=== PATIENT | male | born 1960 | race Caucasian/White ===

== ENCOUNTER 2018-09-28 16:09 | Inpatient (IN) ==
[2018-09-28] MEDS ORDERED: DUONEB (A & A) INH PRN (19:15)
[2018-09-28] MEDS ORDERED: SODIUM CHLORIDE 0.9% INJ SCH (21:00)
[2018-09-28 21:12] LABS: HEMOGLOBIN 14.7 g/dL (14.0-18.0); MCH 27.6 PG (27-31); MCHC 33.4 g/dL (33-37); MCV 82.6 FL (81-99); RBC 5.33 XMIL (4.7-6.1); RDW 14.5 % (11.5-14.5); WBC 6.57 X1000 (4.8-10.8)
[2018-09-28 21:33] LABS: AGAP 11; ALB/GLOB RATIO 1.2; ALBUMIN 3.8 g/dL (3.5-5.0); ALKALINE PHOSPHATASE 74 U/L (32-122); BUN 11 mg/dL (8-22); C REACTIVE PROT QUANT 3.38 mg/L (0.00-5.00); CALCIUM 8.5 mg/dL (8.8-10.2); CHLORIDE 101 mmol/L (98-107); CK PROFILE 88 U/L (24-204); COSMO 277; CREATININE 0.7 mg/dL (0.7-1.2); ESTIMATED GFR > 60; GLUCOSE 99 mg/dL (70-104); GOT 16 U/L (10-34); GPT 9 U/L (10-44); MAGNESIUM 2.1 mg/dL (1.5-2.7); POTASSIUM 4.1 mmol/L (3.5-5.1); SODIUM 139 mmol/L (136-145); TCO2 27 mmol/L (25-35); TOTAL BILIRUBIN 0.24 mg/dL (0.20-1.00); TOTAL PROTEIN 6.9 g/dL (6.3-8.3)
--- NOTE | 2018-09-28 21:49 | Diag Imaging Result Doc PS360 ---
EXAM: CHEST-2 VIEWS - 09/28/2018 HISTORY: SOB TECHNIQUE: Chest two views COMPARISON: 04/21/2010 FINDINGS: Heart size is normal. There are apparent mild COPD changes. The lungs appear to be clear of acute changes. There is no pleural effusion or pneumothorax identified. There is apparent thoracic ankylosis noted. IMPRESSION: Mild COPD changes. No other evidence of acute disease. Electronically signed by Gorge Betts 09/28/2018 9:46 PM
--- NOTE | 2018-09-28 21:57 | HISTORY AND PHYSICAL ---
CHIEF COMPLAINT: Shortness of breath and cough, wheezing for the last 2 weeks. HISTORY OF PRESENT ILLNESS: He is a 66-year-old, white gentleman who came in my office today after followup treating outpatient. Two-week history of URI symptoms. He has left ear otitis media and wheezing. He was sent home on 09/08/2018. He came back with marked wheezing and mild respiratory distress. He is slightly hypoxic on pulse oximetry. Since he has immunocompromised with underlying ankylosing spondylitis, the patient was admitted to the hospital for acute COPD exacerbation after failure of outpatient treatment. PAST MEDICAL HISTORY: Ankylosing spondylitis, BPV, benign prostatic hypertrophy, COPD, depression with anxiety, hypertension, hypogonadism, kidney stones, nicotine dependency, sleep apnea, acid reflux disease, B12 deficiency. PAST SURGICAL HISTORY: Colonoscopy. Waiting for cataract surgery next week. MEDICATIONS: Humira injection every 2 weeks, 40 mg/0.8 mL, Lunesta 3 mg daily, baclofen 10 three times daily, hydromorphone 4 mg 3 times daily. Trilogy 1 puff daily. Timolol 0.5, 1 drop in both eyes once daily. ALLERGIES: Not known. SOCIAL HISTORY: He is . No children. Retired cnc maintenance technician. Living in [place]. Smoking 2 packs a day since age 14. No alcohol problems. FAMILY HISTORY: Father of liver failure at 66. Mother is 77 years old with high blood pressure. Grandparents had heart disease. HEALTH MAINTENANCE: Flu vaccine declined. Pneumococcal vaccine 2009, Last physical exam May 2018, colonoscopy January 2017. REVIEW OF SYSTEMS: HEENT: Headache. No vision problems due to cataracts. Left ear pain, postnasal drainage. Neck: He has a stiff neck due to ankylosing spondylitis. Cardiopulmonary: Cough, shortness of breath, wheezing, nonproductive cough. No fever. No chest pain. No PND. No orthopnea. No swelling of feet. GI: No nausea, vomiting, abdominal pain. : No history of hesitancy, frequency, dysuria, and no swelling of feet. No history of joint pains due to ankylosing spondylitis. Neuro exam: No focal symptoms or weakness. PHYSICAL EXAMINATION: VITAL SIGNS: He is 5 feet 8 inches, 146 pounds, low-grade fever 99, pulse is 66, blood pressure is 162/82. He is in mild respiratory distress using accessory muscles. HEENT EXAM: Left tympanic membrane is inflamed. Nose and throat congested. Bilateral cataracts present. NECK: Forward flexion, limited extension noted. CHEST: Bilateral wheezing. HEART: Distant heart sounds. ABDOMEN: Belly is soft, nontender. Good bowel sounds. No masses palpable. RECTAL: Deferred. EXTREMITIES: No peripheral edema, cyanosis. NEUROLOGIC: No obvious neurological deficits. INVESTIGATIONS: White cell count 6.5, hematocrit 44, platelets 214. Rest of the labs are pending. ASSESSMENT AND PLAN: A 58-year-old, white gentleman admitted to the hospital basically for acute chronic obstructive pulmonary disease exacerbation with underlying tobacco abuse, ankylosing spondylitis. 1. Chronic obstructive pulmonary disease, . Plan is follow up on the pending labs and continue on oxygen as needed, bronchodilators, IV steroids, IV antibiotics. 2. Tobacco abuse. Quit smoking. 3. Sleep apnea on CPAP machine. 4. Kidney stones, stable. 5. Chronic pain due to ankylosing spondylitis, on baclofen and hydromorphone, under Dr. Graf. 6. Insomnia on Lunesta. 7. B12 deficiency on replacement therapy. 8. Initiate vaccination protocol. Pneumococcal vaccine prior to the discharge and follow up on the pending labs. cc: Fredis Norman MD
[2018-09-28] MEDS: NS 1,000 ML IV SCH (22:47)
[2018-09-28] MEDS: LEVAQUIN 500 MG/D5W 500 MG/100 ML IVPB IV SCH (22:50)
[2018-09-28] MEDS: SOLU-MEDROL IV SCH (22:54)
[2018-09-28] MEDS: ZOSYN 3.375 GM in NS 50 ML IV SCH (22:54)
[2018-09-28] MEDS: PEPCID IV SCH (22:55)
[2018-09-28] MEDS: NICODERM PATCH TD PRN (22:56)
[2018-09-28] MEDS: LOVENOX SUBQ SCH (22:57)
[2018-09-28] MEDS: LIORESAL PO SCH (22:58)
[2018-09-28] MEDS: HUMALOG SUBQ SCH (22:59)
[2018-09-28 23:14] LABS: ALLEN TEST YES; BE 2.7 mmoll (-3.0-3.0); BLOOD TYPE ARTERIAL; HCO3-(ACT) 26.9 mmoll (20.0-26.0); METHB 0.4 % (0.0-1.5); O2(CT) 18.7 mL/dL (15.0-23.0); O2HB 92.5 % (95.0-99.0); PCO2(98.6) 44 mmHg (35-45); PO2(98.6) 91 mmHg (60-100); SAMPLE BLOOD; SAO2 99.2 % (95.0-100.0); THB 14.3 g/dL (11.5-17.4); pH(98.6) 7.41 (7.35-7.45)
[2018-09-28 23:16] LABS: MODALITY ROOM AIR
[2018-09-29] MEDS: ZOSYN 3.375 GM in NS 50 ML IV SCH ×4 (04:54→22:28)
[2018-09-29] MEDS: DILAUDID PO SCH ×4 (04:59→20:52)
[2018-09-29] MEDS: HUMALOG SUBQ SCH ×4 (06:17→20:53)
[2018-09-29] MEDS: SOLU-MEDROL IV SCH ×3 (06:18→22:28)
--- NOTE | 2018-09-29 07:27 | EKG Report ---
Test Performed on : 09/29/2018 00:59:47 AM Test Reason : chest pain Blood Pressure : / mmHG Vent. Rate : 061 BPM Atrial Rate : 061 BPM P-R Int : 140 ms QRS Dur : 086 ms QT Int : 384 ms P-R-T Axes : 070 -23 003 degrees QTc Int : 386 ms Normal sinus rhythm. Nonspecific T wave abnormality Abnormal ECG When compared with ECG of 15-APR-2010 15:47, T wave inversion now evident in Inferior leads Nonspecific T wave abnormality now evident in Anterolateral leads Confirmed by Abilio DE LA TORRE, Jamar Dobbins ([id number]) on 09/29/2018 6:38:55 PM
[2018-09-29] MEDS: PEPCID IV SCH ×2 (08:35→20:53)
[2018-09-29] MEDS: MS CONTIN PO SCH ×2 (08:36→20:52)
[2018-09-29] MEDS: LIORESAL PO SCH ×4 (08:36→20:52)
[2018-09-29] MEDS: NS 1,000 ML IV SCH (14:08)
[2018-09-29] MEDS: LEVAQUIN 500 MG/D5W 500 MG/100 ML IVPB IV SCH (20:53)
[2018-09-29] MEDS: LOVENOX SUBQ SCH (20:54)
[2018-09-29] MEDS: NICODERM PATCH TD PRN (21:09)
[2018-09-29] MEDS ORDERED: PREVNAR 13 IM ONE (21:24)
--- NOTE | 2018-09-29 21:47 | PROGRESS NOTE ---
DATE: 09/29/2018 SUBJECTIVE: The patient is a little better. Decreased cough and wheezing. PHYSICAL EXAMINATION: Vital signs: Temperature is 97 degrees, pulse 68, blood pressure is 141/70. HEENT: Within normal limits. Neck: Supple. Chest: Bilateral air entry. Decreased wheezing. Heart: Sounds are regular. Abdomen: Belly is soft, nontender. No obvious deficits. ASSESSMENT AND PLAN: 1. Acute exacerbation of chronic obstructive pulmonary disease, getting better. Continue present treatment with IV steroids, IV Levaquin, IV Zosyn. 2. Gentle hydration. 3. Ankylosing spondylitis, on hold on Humira. Restart on his chronic pain medicine, and nicotine patch was given. 4. Deep vein thrombosis and gastrointestinal prophylaxis as per order sheet. 5. Continue the present treatment. 6. We will initiate vaccination protocol prior to the discharge. Last pneumococcal vaccine reported 2009. LEVEL OF DOCUMENTATION: 25 minutes. cc: Fredis Norman MD
[2018-09-30] MEDS: ZOSYN 3.375 GM in NS 50 ML IV SCH (06:19)
[2018-09-30] MEDS: SOLU-MEDROL IV SCH (06:19)
[2018-09-30] MEDS: HUMALOG SUBQ SCH (06:23)
[2018-09-30 07:11] VITALS: BP 139/79
[2018-09-30] MEDS: DILAUDID PO SCH (09:21)
[2018-09-30] MEDS: PEPCID IV SCH (09:21)
[2018-09-30] MEDS: LIORESAL PO SCH ×2 (09:21→09:22)
[2018-09-30] MEDS: MS CONTIN PO SCH (09:21)
--- NOTE | 2018-10-02 01:56 | DISCHARGE SUMMARY ---
ADMISSION DATE: 09/28/2018 DISCHARGE DATE: 09/30/2018 DISCHARGING DIAGNOSIS: 1. Acute recurrent chronic obstructive pulmonary disease. exacerbation due to ongoing tobacco abuse. 2. Ankylosing spondylitis. 3. Benign positional vertigo. 4. Benign prostatic hypertrophy. 5. Chronic obstructive pulmonary disease. 6. Depression with anxiety. 7. Hypertension. 8. Hypogonadism. 9. Kidney stones. 10. Chronic nicotine dependency. 11. Sleep apnea. 12. Acid reflux disease. 13. B12 deficiency. BRIEF HISTORY: Please see the H and P that was done on 09/28. In brief, he is a 58-year-old white gentleman who was treated outpatient at least 3 times since the beginning of this year. Continues to smoke. He is immunocompromised, taking Humira for underlying ankylosing spondylitis. HOSPITAL COURSE: The patient failed to improve as an outpatient treatment with continuous wheezing for which he was given oxygen, bronchodilators, IV steroids, IV antibiotics. Follow up, the patient was less bronchospastic. He also has restrictive lung disease due to underlying ankylosing spondylitis. The patient was strictly advised not to smoke in the future, for which nicotine patches were given. Rest of the hospital course was uneventful. LABS: CBC: White cell count 6.5, hematocrit 44, platelets 241,000. ABG, pH is 7.41, pCO2 of 44, PO2 of 91 on room air. Carboxyhemoglobin 6.4. SMA-7 was normal and calcium 8.5. Cardiac enzymes, troponin, CRP were normal. TSH is normal. Chest x-ray was stable with mild COPD changes, no infiltrates. DISCHARGE INSTRUCTIONS: 1. Pneumococcal 13 was given 09/30/2018. 2. Quit smoking. 3. Levaquin 500 daily, nicotine patch as directed, trilogy 1 puff daily, Medrol Dosepak, morphine ER 30 p.o. b.i.d., Humira will hold on and will resume once his COPD improves, Dilaudid 4 mg t.i.d., fish oil 500 p.o. b.i.d., baclofen 10 p.o. t.i.d. 4. Follow up in my office in 2 weeks. cc: Fredis Norman MD
== END 2018-09-30 10:35 | disposition home or self-care (01) | DRG 192 ==
LOC: DIRADM 16:09 → 3N 20:25
PROVIDERS: ADMIT Internal Medicine; ATTEND Internal Medicine
CPT/HCPCS: 71020; 71046; 80048; 80053; 82550; 82805; 82948; 83735; 83880; 84443; 84484; 85027; 86140; 90670; 93005; 93010; A9270; J1650; J1815; J1956; J2543; J2930; J7030; S0028; XXXXX